=== PATIENT | female | born 1995 | race Caucasian/White ===

== ENCOUNTER 2017-04-07 20:28 | Emergency (ER) | payer OTHER ==
[~2017-04-07] VITALS: Ht 154.9 cm; Wt 88.5 kg
[2017-04-07 20:56] VITALS: BP 133/82
--- NOTE | 2017-04-07 22:05 | NUR ---
TO ER BED 5
--- NOTE | 2017-04-07 22:08 | NUR ---
PATIENT PRESENTS TO ED WITH VAG BLEEDING SINCE DECEMBER 10 WITH BLOOD CLOTS, WITH IUD. PT STATES NO MED HX . DENIES N/V/D; SKIN IS PINK/WARM/DRY; AAOX4 WITH EVEN AND STEADY GAIT; LUNGS CLEAR BL; HR EVEN AND REGULAR; PT DENIES ANY FEVER, CP, SOB, OR COUGH AT THIS TIME; PATIENT STATES PAIN OF 8/10 AT THIS TIME; VSS; PATIENT POSITIONED FOR COMFORT; HOB ELEVATED; BEDRAILS UP X2; BED DOWN. ER MD MADE AWARE OF PT STATUS.
--- NOTE | 2017-04-07 23:44 | NUR ---
DR LEON AT BEDSIDE EVALUATING PATIENT.
[2017-04-08 00:04] LABS: BASOPHILS # (AUTO) 0.4 K/uL (0.00-0.22); BASOPHILS % (AUTO) 4.9 % (0.0-2.0); EOSINOPHILS # (AUTO) 0.2 K/uL (0-0.4); EOSINOPHILS % (AUTO) 2.9 % (0.0-4.0); HEMATOCRIT 37.9 % (36-48); HEMOGLOBIN 12.5 g/dL (12.0-16.0); LYMPHOCYTES # (AUTO) 2.9 K/uL (2.5-16.5); LYMPHOCYTES % (AUTO) 35.8 % (20.5-51.1); MEAN CORPUSCULAR HEMOGLOBIN 30 pg (27-31); MEAN CORPUSCULAR HGB CONC 33 g/dL (33-37); MEAN CORPUSCULAR VOLUME 92 fL (80-94); MONOCYTES # (AUTO) 0.8 K/uL (0.8-1.0); MONOCYTES % (AUTO) 9.5 % (1.7-9.3); NEUTROPHILS # (AUTO) 3.7 K/uL (1.8-7.7); NEUTROPHILS % (AUTO) 46.9 % (42.2-75.2); PLATELET COUNT (AUTO) 210 K/uL (140-450); RED BLOOD CELL COUNT(AUTO) 4.14 MIL/uL (4.20-5.40); RED CELL DISTRIBUTION WIDTH 12.5 % (11.6-13.7)
[2017-04-08 00:05] LABS: APPEARANCE,URINE CLOUDY (CLEAR); BILIRUBIN,URINE 2+ (NEGATIVE); BLOOD, URINE 3+ (NEGATIVE); COLOR,URINE BROWN (YELLOW); LEUKOCYTE ESTERASE ,URINE TRACE (NEGATIVE); NITRITE, URINE POSITIVE (NEGATIVE); PH,URINE 6.5 (5.0-9.0); PROTEIN,URINE 2+ (NEGATIVE); UGLUCOSE NEGATIVE (NEGATIVE)
[2017-04-08 00:26] LABS: BACTERIA,URINE 2+ /HPF (None Seen); ICTOTEST NEGATIVE (NEGATIVE); RBC,URINE TOO NUMEROUS TO COUN /HPF (0-5); SQUAMOUS EPITHELIAL CELL,UR None Seen /LPF (0-3 (FEW))
[2017-04-08 00:27] LABS: PROTHROMBIN TIME 10.4 secs (10.8-13.4)
--- NOTE | 2017-04-08 01:13 | NUR ---
PT SENT TO U/S WITH [employer] VIA W/C AAOX4
--- NOTE | 2017-04-08 01:42 | NUR ---
PT BACK ON UNIT FROM HAVING US DONE
--- NOTE | 2017-04-08 02:59 | NUR ---
Female Financial Administration Officer accompanied female patient for Pelvic Exam.
--- NOTE | 2017-04-08 03:51 | NUR ---
PT APPEARS TO BE RESTING IN BED. NO SOB NOTED. SON AT BEDSIDE. WILL CONTINUE TO MONITOR.
[2017-04-08 04:40] VITALS: BP 122/68
--- NOTE | 2017-04-08 04:41 | NUR ---
Patient discharged with v/s stable. Written and verbal after care instructions given and explained. Patient alert, oriented and verbalized understanding of instructions. Ambulatory with steady gait. All questions addressed prior to discharge. ID band removed. Patient advised to follow up with PMD. Rx of NITROFURANTOIN given. Patient educated on indication of medication including possible reaction and side effects. Opportunity to ask questions provided and answered.
== END 2017-04-08 04:40 | disposition home or self-care (01) ==
LOC: MED 20:28
CPT/HCPCS: 36415; 76830; 81001; 84702; 85025; 85610; 85730; 87086; 99285

== ENCOUNTER 2019-05-14 19:34 | Emergency (ER) | payer OTHER ==
[~2019-05-14] VITALS: Ht 157.5 cm; Wt 81.6 kg
[2019-05-14 19:53] VITALS: BP 136/76
--- NOTE | 2019-05-14 20:09 | NUR ---
PT CAME IN TO ER C/O RIGHT SHOULDER PAIN X 3 DAYS. PAIN LEVEL 7/10, BURNING. HURTS UPON RANGE OF MOTION. DENIES TRAUMA/INJURY. TOOK MOTRIN AT 9AM WITHOUT ANY RELIEF. NO MED HX. SAFETY MEASURES IN PLACE. WAITING FOR ERMD TO EVALUATE PT.
[2019-05-14 20:10] VITALS: BP 136/76
[2019-05-14] MEDS ORDERED: DEXAMETHASONE 10 MG/ML VIAL IM ONE (20:15)
[2019-05-14] MEDS ORDERED: KETOROLAC 30 MG/ML VIAL IM ONE (20:15)
--- NOTE | 2019-05-14 20:50 | NUR ---
Patient discharged with v/s stable. Written and verbal after care instructions given and explained. EDUCATED PT TO FOLLOW STRETCHES ON DISCHARGE PAPERWORK AND TO TAKE MEDICATION PRESCRIBED.Patient alert, oriented and verbalized understanding of instructions. Ambulatory with steady gait. All questions addressed prior to discharge. ID band removed. Patient advised to follow up with PMD. Rx of PRENISONE AND NAPROXEN WAS given. Patient educated on indication of medication including possible reaction and side effects. Opportunity to ask questions provided and answered.
== END 2019-05-14 20:50 | disposition home or self-care (01) ==
LOC: MED 19:34
DX: M75.41 Impingement syndrome of right shoulder (principal)
CPT/HCPCS: 81025; 96372; 99283; J1100; J1885

== ENCOUNTER 2019-05-23 03:27 | Emergency (ER) | payer OTHER ==
[~2019-05-23] VITALS: Ht 154.9 cm; Wt 81.6 kg
[2019-05-23 03:27] VITALS: BP 148/77
--- NOTE | 2019-05-23 03:38 | NUR ---
24/F PRESENTS TO ED, C/O R ANTERIOR SHOULDER PAIN, RADIATING TO R POSTERIOR SHOULDER, X2 WEEKS, WORSENING. PT STATED SHE WOKE UP WITH THE PAIN, DENIES INJURY/TRAUMA. PT WAS SEEN HERE 11 DAYS AGO, WAS GIVEN RX PREDNISONE AND NAPROXEN WITH RELIEF. 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 R SHOULDER WITH NO ABNORMALITY/BRUISING/SWELLING, +CMS DISTALLY, FULL ROM BUT REPORTS PAIN. HX ANXIETY; RX LEXAPRO; OTC MOTRIN WITHOUT RELIEF.
[2019-05-23] MEDS ORDERED: KETOROLAC 60 MG/2 ML VIAL IM ONE (04:00)
[2019-05-23 04:11] VITALS: BP 148/77
== END 2019-05-23 04:11 | disposition home or self-care (01) ==
LOC: MED 03:27
DX: M25.511 Pain in right shoulder (principal); F41.9 Anxiety disorder, unspecified
CPT/HCPCS: 96372; 99283; J1885